=== PATIENT | female | born 1975 | race Caucasian/White ===

== ENCOUNTER → 2017-07-07 | Outpatient (CLI) | payer OTHER ==
--- NOTE | 2017-07-07 08:12 | DIAGNOSTIC IMAGING REPORT ---
MRI LEFT KNEE NO CONTRAST CLINICAL HISTORY: L KNEE PAIN joint effusion COMPARISON STUDY: No previous studies for comparison. FINDINGS: Imaging was performed in the sagittal, axial, and coronal planes. There is a suprapatellar joint effusion. There are no areas of marrow edema to indicate occult fracture or bone bruise. The anterior and posterior cruciate ligaments are intact. The medial and lateral collateral ligaments appear intact. No meniscal tears are visualized. There is mild medial joint compartment chondrosis. There is subcutaneous edema anterior to the patellar tendon. There is mild patellar tendon tendinopathy at the tibial insertion. IMPRESSION: 1. No evidence of cruciate or collateral ligament disruption 2. No evidence of meniscal tear 3. Mild medial joint compartment chondrosis 4. Joint effusion 5. Minor infrapatellar tendinopathy Electronically signed by: Modesto Bowen M.D. 07/07/2017 8:11 AM Dictated Date/Time: 07/07/2017 8:06 AM
== END | disposition home or self-care (01) ==
LOC: C.MRI 07:11
PROVIDERS: ATTEND Nurse Practitioner Family
DX: M25.562 Pain in left knee (principal); M25.462 Effusion, left knee